=== PATIENT | male | born 1975 | race Two or more races ===

== ENCOUNTER 2017-02-18 14:47 | Emergency (ER) | payer OTHER ==
[~2017-02-18] VITALS: Ht 182.9 cm; Wt 75.0 kg
[~2017-02-18 14:47] MED LIST: CYCL-36 PO; IBUP800T23 PO
[2017-02-18 14:49] VITALS: BP 127/81; PULSE 90; RESP 14; TEMP 98.2; O2SAT 97
[2017-02-18] MEDS ORDERED: ACETAMINOPHEN/HYDROcodone 325 MG/5 MG TAB PO ONE (15:30)
[2017-02-18] MEDS ORDERED: KETOROLAC TROMETHAMINE 60 MG/2 ML (IM) VIAL IM ONE (15:30)
[2017-02-18] MEDS ORDERED: ORPHENADRINE INJ 60 MG/2 ML AMP IM ONE (15:30)
[2017-02-18] MEDS ORDERED: predniSONE 20 MG TAB PO ONE (15:30)
--- NOTE | 2017-02-18 15:30 | PD ---
HPI Chief Complaint: Back/ Neck Pain or Injury Time Seen by Provider: 15:23 Travel History International Travel<30 days: No Contact w/Intl Traveler<30days: No Traveled to known affect area: No History of Present Illness HPI 42-year-old male presents to the emergency for with acute on chronic low back pain. States that he was at work Saturday and twisted his back trying to pick something up. States he felt a pop and started having pain about the weekend. States the pain radiates down bilateral legs and has tingling. Pain increases with movement and decreases with laying flat. Patient has taken multiple over- the-counter medications without significant relief. States his pain is moderate and constant and located in the lumbar region. He also believe this is a muscular problem at this point. Patient denies fever, chills, loss of bowel or bladder function, saddle anesthesia. Does not know when he last had imaging of his back. PFSH Past Medical History Heart Rhythm Problems: No Cardiac Catheterization: No Cardiovascular Problems: No High Cholesterol: No Congestive Heart Failure: No Diabetes: No Diminished Hearing: No Headaches: Yes Hypertension: No Myocardial Infarction: No Past Surgical History Appendectomy: Yes Coronary Artery Bypass Graft: No Social History Alcohol Use: Yes (OCCASIONAL) Tobacco Use: Yes Substance Use: No Allergies-Medications (Allergen,Severity, Reaction): Coded Allergies: No Known Allergies (Verified , 10/05/15) Reported Meds & Prescriptions Reported Meds & Active Scripts Active Robaxin (Methocarbamol) 500 Mg Tab 500 Mg PO TID 5 Days Medrol Dosepak (Methylprednisolone) 4 Mg Dspk 4 Mg PO DIRECTED Per Pharmacist direction Flexeril (Cyclobenzaprine HCl) 10 Mg Tab 10 Mg PO TID PRN Ibuprofen 800 Mg Tab 800 Mg PO Q6H PRN Review of Systems Except as stated in HPI: all other systems reviewed are Neg Physical Exam Narrative GENERAL: Well-nourished, well-developed patient, in obvious distress. Slow with movements secondary to pain SKIN: Focused skin assessment warm/dry. HEAD: Normocephalic. EYES: No scleral icterus. No injection or drainage. NECK: Supple, trachea midline. No JVD or lymphadenopathy. CARDIOVASCULAR: Regular rate and rhythm without murmurs, gallops, or rubs. RESPIRATORY: Breath sounds equal bilaterally. No accessory muscle use. BACK: No CVA tenderness. No rash. No point tenderness on palpation of the spine. Mild TTP paraspinous muscles. Neurovascularly intact MUSCULOSKELETAL: No cyanosis, or edema. BACK: Nontender without obvious deformity. No CVA tenderness. Data Data Last Documented VS Vital Signs Date Time Temp Pulse Resp B/P (MAP) Pulse Ox O2 Delivery O2 Flow Rate FiO2 02/18/17 14:49 98.2 90 14 127/81 (96) 97 Orders Orders Acetamin-Hydrocod 325-5 Mg (Iron 5-325 (02/18/17 15:30) Orphenadrine Inj (Norflex Inj) (02/18/17 15:30) Ketorolac Inj (Toradol Inj) (02/18/17 15:30) Prednisone (Deltasone) (02/18/17 15:30) Ed Discharge Order (02/18/17 15:54) [facility] Medical Decision Making Medical Screen Exam Complete: Yes Emergency Medical Condition: Yes Differential Diagnosis Acute on chronic lumbago versus muscle spasm versus sciatica Narrative Course 42-year-old male presents to the emergency for with acute on chronic low back pain. States that he was at work Saturday and twisted his back trying to pick something up. States he felt a pop and started having pain about the weekend. States the pain radiates down bilateral legs and has tingling. Pain increases with movement and decreases with laying flat. Patient has taken multiple over- the-counter medications without significant relief. States his pain is moderate and constant and located in the lumbar region. He also believe this is a muscular problem at this point. Patient denies fever, chills, loss of bowel or bladder function, saddle anesthesia. Does not know when he last had imaging of his back. No red flag symptoms Vital signs stable Physical exam demonstrates a 42-year-old male who uses a cane in moderate distress. Upon entering the room patient was lying flat as this is his supposedly position of comfort. TTP of surrounding paraspinous muscles lumbar region. Neurovascularly intact lower extremities Norflex, Toradol, hydrocodone, and Solu-Medrol ministered in the ED. E force consulted and there were no recent controlled substance prescriptions. Patient discharged a muscle relaxer and steroids. Advised to follow up with primary care physician and orthopedics for recurrent low back pain. Return for worsening or persistent symptoms. Diagnosis Primary Impression: Lumbago Qualified Codes: M54.5 - Low back pain Referrals: Primary Care Physician Additional Instructions: Perform light stretches of the lower back and legs, and alternate heat and ice packs. If you develop increased pain, weakness, fever, chills, or bowel or bladder issues, return to the ED for further treatment and evaluation. Follow up with your primary care physician in 2-3 days. Take medications as prescribed Scripts Methocarbamol (Robaxin) 500 Mg Tab 500 MG PO TID for Muscle Spasm for 5 Days, TAB 0 Refills Prov: Victorina Claudio MD 02/18/17 Methylprednisolone Dosepak (Medrol Dosepak) 4 Mg Dspk 4 MG PO DIRECTED, #1 DSPK 0 Refills Per Pharmacist direction Prov: Victorina Claudio MD 02/18/17 Disposition: 01 DISCHARGE HOME Condition: Stable Shayla Mary Feb 18, 2017 15:30
[2017-02-18] MEDS ORDERED: MEDR4PAK PO (15:36)
[2017-02-18] MEDS ORDERED: ROBA500T PO (15:36)
== END 2017-02-18 16:47 | disposition home or self-care (01) ==
LOC: NEPK 14:47
DX: M54.5 Low back pain (principal); M79.604 Pain in right leg; M79.605 Pain in left leg; R20.2 Paresthesia of skin; Z72.0 Tobacco use
CPT/HCPCS: 96372; 99284; J1885; J2360; J7512

== ENCOUNTER 2017-07-08 23:03 | Emergency (ER) | payer OTHER ==
[~2017-07-08] VITALS: Ht 180.3 cm; Wt 63.0 kg
[~2017-07-08 23:03] MED LIST changes: -CYCL-36 PO; +CYCL5TAB PO; +GABA300C5 PO; +IBUP1TAB7 PO; -IBUP800T23 PO; +VARE1PAK3 PO
[2017-07-08 23:19] VITALS: BP 135/93; PULSE 103; RESP 18; TEMP 97.7; O2SAT 97
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
[2017-07-09] MEDS ORDERED: LORazepam 1 MG TAB PO ONE (02:15)
[2017-07-09 02:46] VITALS: RESP 18
[2017-07-09 12:16] LABS: AUTOMATED NEUTROPHIL # 8.5 TH/MM3 (1.8-7.7); BASOPHIL # 0.1 TH/MM3 (0-0.2); BASOPHIL % 0.6 % (0.0-2.0); EOSINOPHIL # 0.2 TH/MM3 (0-0.4); HEMATOCRIT 43.7 % (39.0-51.0); HEMOGLOBIN 15.1 GM/DL (13.0-17.0); LYMPH % 15.7 % (9.0-44.0); LYMPHOCYTE # 1.8 TH/MM3 (1.0-4.8); MEAN CELL VOLUME 88.4 FL (80.0-100.0); MEAN CORPUSCULAR HEMOGLOBIN 30.5 PG (27.0-34.0); MEAN CORPUSCULAR HGB CONC 34.4 % (32.0-36.0); MEAN PLATELET VOLUME 8.9 FL (7.0-11.0); MONO % 5.6 % (0.0-8.0); MONOCYTE # 0.6 TH/MM3 (0-0.9); NEUT % 76.1 % (16.0-70.0); PLATELET COUNT 301 TH/MM3 (150-450); RED BLOOD COUNT 4.94 MIL/MM3 (4.50-5.90); RED CELL DISTRIBUTION WIDTH 12.2 % (11.6-17.2); WHITE BLOOD COUNT 11.2 TH/MM3 (4.0-11.0)
[2017-07-09 12:41] VITALS: BP 132/87
[2017-07-09 12:43] LABS: ALBUMIN 4.2 GM/DL (3.4-5.0); AST (GOT) 22 U/L (15-37); BICARBONATE 29.8 MEQ/L (21.0-32.0); BLOOD UREA NITROGEN 23 MG/DL (7-18); CALCIUM 9.1 MG/DL (8.5-10.1); CHLORIDE 96 MEQ/L (98-107); GLOMERULAR FILTRATION RATE 61 ML/MIN (>89); GLUCOSE,RANDOM 151 MG/DL (74-106); SODIUM (NA) 134 MEQ/L (136-145)
[2017-07-09 12:44] LABS: ALT (GPT) 16 U/L (12-78)
--- NOTE | 2017-07-09 12:49 | PD ---
Physical Exam Date Seen by Provider: Jul 09, 2017 Time Seen by Provider: 12:46 Narrative 42-year-old male previously medically cleared for psychiatric evaluation. Patient was seen by psychiatric staff and deemed psychiatrically stable for discharge at this time. Patient remains medically stable at this time. Follow- up will be based on psychiatric note. Data Data Last Documented VS Vital Signs Date Time Temp Pulse Resp B/P (MAP) Pulse Ox O2 Delivery O2 Flow Rate FiO2 07/09/17 12:41 84 16 132/87 (102) 99 07/08/17 23:19 97.7 Orders Orders Psych Screen (07/09/17 01:29) Complete Blood Count With Diff (07/09/17 02:08) Comprehensive Metabolic Panel (07/09/17 02:08) Thyroid Stimulating Hormone (07/09/17 02:08) Drug Screen, Random Urine (07/09/17 02:08) Alcohol (Ethanol) (07/09/17 02:08) Lorazepam (Ativan) (07/09/17 02:15) Diet Regular Basic (07/09/17 Breakfast) Diet Regular Basic (07/09/17 Lunch) Labs Laboratory Tests Test 07/09/17 11:55 White Blood Count 11.2 TH/MM3 Red Blood Count 4.94 MIL/MM3 Hemoglobin 15.1 GM/DL Hematocrit 43.7 % Mean Corpuscular Volume 88.4 FL Mean Corpuscular Hemoglobin 30.5 PG Mean Corpuscular Hemoglobin Concent 34.4 % Red Cell Distribution Width 12.2 % Platelet Count 301 TH/MM3 Mean Platelet Volume 8.9 FL Neutrophils (%) (Auto) 76.1 % Lymphocytes (%) (Auto) 15.7 % Monocytes (%) (Auto) 5.6 % Eosinophils (%) (Auto) 2.0 % Basophils (%) (Auto) 0.6 % Neutrophils # (Auto) 8.5 TH/MM3 Lymphocytes # (Auto) 1.8 TH/MM3 Monocytes # (Auto) 0.6 TH/MM3 Eosinophils # (Auto) 0.2 TH/MM3 Basophils # (Auto) 0.1 TH/MM3 CBC Comment DIFF FINAL Differential Comment [facility] Medical Record Reviewed: Yes Supervised Visit with FRANKLIN: Yes Narrative Course 42-year-old male previously medically cleared for psychiatric evaluation. Patient was seen by psychiatric staff and deemed psychiatrically stable for discharge at this time. Patient remains medically stable at this time. Follow- up will be based on psychiatric note. Diagnosis Primary Impression: Brief psychotic disorder Additional Impression: Agitation Patient Instructions: General Instructions, Brief Psychotic Disorder (ED) Departure Forms: Tests/Procedures Disposition: 01 DISCHARGE HOME Condition: Stable Arya Benites Jul 09, 2017 12:49
[2017-07-09 12:54] LABS: ALKALINE PHOSPHATASE 76 U/L (45-117); TOTAL BILIRUBIN ADULT 1.3 MG/DL (0.2-1.0); TOTAL PROTEIN 8.3 GM/DL (6.4-8.2)
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
== END 2017-07-09 13:04 | disposition home or self-care (01) ==
LOC: NEPJ 23:03
DX: F23 Brief psychotic disorder (principal); F12.90 Cannabis use, unspecified, uncomplicated; F17.200 Nicotine dependence, unspecified, uncomplicated
CPT/HCPCS: 80053; 80307; 84443; 85025; 99284